=== PATIENT | female | born 1995 | race Caucasian/White ===

== ENCOUNTER 2021-06-24 05:59 | Emergency (ER) | payer BC ==
[~2021-06-24] VITALS: Ht 165.1 cm; Wt 61.0 kg
[2021-06-24] MEDS ORDERED: FAMOTIDINE 20MG/2ML VIAL IV ONE (06:45)
[2021-06-24] MEDS ORDERED: DIPHENHYDRAMINE 50MG/ML VIAL IV ONE (06:45)
[2021-06-24 07:30] VITALS: BP 124/69
[2021-06-24] MEDS ORDERED: CLIN30SO TP (07:36)
[2021-06-24] MEDS ORDERED: DIPH25CA83 PO (07:36)
== END 2021-06-24 08:11 | disposition home or self-care (01) ==
LOC: ER 05:59
DX: L29.8 Other pruritus (principal); R21 Rash and other nonspecific skin eruption; L73.9 Follicular disorder, unspecified; T37.8X5A Adverse effect of other specified systemic anti-infectives and antiparasitics, initial encounter; Y92.098 Other place in other non-institutional residence as the place of occurrence of the external cause
CPT/HCPCS: 96374; 96375; 99284; J1200; J3490